=== PATIENT | female | born 1955 | race Caucasian/White ===

== ENCOUNTER 2023-02-22 12:46 | Outpatient (CLI) | payer MEDICARE, OTHER | END 2023-02-22 12:47 | disposition home or self-care (01) | LOC: BICRAD 12:46 | PROVIDERS: ATTEND Nurse Practitioner Family | DX: M53.3 Sacrococcygeal disorders, not elsewhere classified (principal); G89.29 Other chronic pain; M41.86 Other forms of scoliosis, lumbar region | CPT/HCPCS: 72100; 72170 ==

== ENCOUNTER 2025-04-17 12:42 | Outpatient (CLI) | payer OTHER | END 2025-04-17 12:43 | disposition home or self-care (01) | LOC: BICMAMMO 12:42 | PROVIDERS: ATTEND Family Medicine | DX: Z12.31 Encounter for screening mammogram for malignant neoplasm of breast (principal); M81.0 Age-related osteoporosis without current pathological fracture | CPT/HCPCS: 77063; 77067; 77080 ==